=== PATIENT | male | born 1990 | race Two or more races ===

== ENCOUNTER 2017-10-18 07:13 | Emergency (ER) | payer SELFPAY ==
[~2017-10-18] VITALS: Ht 172.7 cm; Wt 79.4 kg
[2017-10-18 07:17] VITALS: BP 158/67
--- NOTE | 2017-10-18 07:41 | NUR ---
CALLED [employer], WILL SEND OFFICERS TO TAKE REPORT
== END 2017-10-18 10:04 | disposition home or self-care (01) ==
LOC: ER 07:15
DX: F19.10 Other psychoactive substance abuse, uncomplicated (principal); F15.10 Other stimulant abuse, uncomplicated; R41.82 Altered mental status, unspecified
CPT/HCPCS: 71045; 72074; 99284; A4606; Z7610

== ENCOUNTER 2018-05-21 08:57 | Emergency (ER) | payer OTHER ==
[~2018-05-21] VITALS: Ht 180.3 cm; Wt 81.6 kg
[2018-05-21 09:18] VITALS: BP 155/78
== END 2018-05-21 09:47 ==
LOC: ER 08:59
DX: B35.3 Tinea pedis (principal); F17.200 Nicotine dependence, unspecified, uncomplicated; Z59.0 Homelessness
CPT/HCPCS: 99283; A4606 ×2; Z7610 ×2

== ENCOUNTER 2018-06-13 08:57 | Emergency (ER) | payer MEDICAID, OTHER ==
[~2018-06-13] VITALS: Ht 180.3 cm; Wt 81.6 kg
[2018-06-13] MEDS ORDERED: ALPRAZOLAM 0.5 MG TABLET PO ONE (09:30)
[2018-06-13] MEDS ORDERED: ALPRAZOLAM 0.5 MG TABLET ONE (09:38)
--- NOTE | 2018-06-13 09:44 | NUR ---
PT GIVEN XANAX 1 MG PO NOW WITH RX Patient discharged to home in stable condition. Written and verbal after care instructions given. Patient verbalizes understanding of instruction.
[2018-06-13 09:47] VITALS: BP 129/87
== END 2018-06-13 09:48 | disposition home or self-care (01) ==
LOC: ER 09:01
DX: F41.9 Anxiety disorder, unspecified (principal); F17.200 Nicotine dependence, unspecified, uncomplicated; Z76.0 Encounter for issue of repeat prescription; Z59.0 Homelessness
CPT/HCPCS: 99284; A4606

== ENCOUNTER 2018-09-24 00:35 | Emergency (ER) | payer MEDICAID ==
[~2018-09-24] VITALS: Ht 180.3 cm; Wt 79.4 kg
--- NOTE | 2018-09-24 01:21 | NUR ---
CALLED PT THREE TIMES. NO RESPONSE IN WAITING ROOM.
[2018-09-24 01:25] VITALS: BP 140/93
[2018-09-24] MEDS ORDERED: ALPRAZOLAM 0.5 MG TABLET ONE (01:50)
[2018-09-24] MEDS ORDERED: ALPRAZOLAM 0.5 MG TABLET PO ONE (02:00)
== END 2018-09-24 01:57 | disposition home or self-care (01) ==
LOC: ER 00:35
DX: F41.9 Anxiety disorder, unspecified (principal); G89.29 Other chronic pain; M54.5 Low back pain; F90.9 Attention-deficit hyperactivity disorder, unspecified type; F17.200 Nicotine dependence, unspecified, uncomplicated; Z98.890 Other specified postprocedural states; Z59.0 Homelessness

== ENCOUNTER 2019-03-30 14:50 | Emergency (ER) | payer MEDICAID ==
[~2019-03-30] VITALS: Ht 172.7 cm; Wt 65.8 kg
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
[2019-03-30 15:26] LABS: BASOPHILS % (AUTO) 0.5 % (0.0-2.0); EOSINOPHILS % (AUTO) 1.7 % (0.0-6.0); HEMATOCRIT 44 % (39-51); HEMOGLOBIN 14.8 g/dL (13.5-17.5); LYMPHOCYTES # (AUTO) 2.4 /CMM (0.8-4.8); LYMPHOCYTES % (AUTO) 30.2 % (20.0-44.0); MEAN CORPUSCULAR HGB CONC 34 g/dl (31.0-36.0); MEAN CORPUSCULAR VOLUME 91 fL (80-96); MONOCYTES # (AUTO) 0.5 /CMM (0.1-1.30); NEUTROPHILS # (AUTO) 4.7 /CMM (1.8-8.9); NEUTROPHILS % (AUTO) 60.6 % (43.0-81.0); PLATELET COUNT (AUTO) 249 /CMM (150-450); RED BLOOD CELL COUNT(AUTO) 4.85 MIL/uL (4.5-6.0); WHITE BLOOD COUNT (AUTO) 7.8 K/uL (4.3-11.0)
--- NOTE | 2019-03-30 15:36 | NUR ---
PT REFUSED TO GIVEN URINE
[2019-03-30 15:58] LABS: ACETAMINOPHEN 0 ug/ml (10-30); ALANINE AMINOTRANSFERASE 25 U/L (12-78); ALKALINE PHOSPHATASE 61 U/L (46-116); ASPARTATE AMINOTRANSFERASE 18 U/L (15-37); BILIRUBIN,DIRECT 0.1 mg/dL (0.0-0.2); BILIRUBIN,TOTAL 0.5 mg/dL (0.2-1.0); CALCIUM, SERUM 9.2 mg/dL (8.5-10.1); CARBON DIOXIDE 32 mmol/L (21-32); CHLORIDE 109 mmol/L (98-107); GLUCOSE 84 mg/dL (74-106); POTASSIUM 4.3 mmol/L (3.5-5.1); SALICYLATE 0.7 mg/dL (2.8-20.0); SODIUM SERUM 147 mmol/L (136-145); TOTAL PROTEIN, SERUM 6.9 g/dL (6.4-8.2); UREA NITROGEN, BLOOD 15 mg/dL (7-18)
--- NOTE | 2019-03-30 16:00 | NUR ---
Patient is resting comfortably in bed. Easily aroused. VSS.
[2019-03-30 16:05] LABS: ALCOHOL, BLOOD < 3 mg/dL (0-0)
--- NOTE | 2019-03-30 16:58 | NUR ---
Patient is resting comfortably in bed. Easily aroused. VSS.
--- NOTE | 2019-03-30 17:10 | NUR ---
Patient discharged to home in stable condition. Written and verbal after care instructions given. Patient verbalizes understanding of instruction. PT ambulatory with a steady gait.
[2019-03-30 17:14] VITALS: BP 124/66
== END 2019-03-30 17:28 | disposition home or self-care (01) ==
LOC: ER 14:52
DX: R46.89 Other symptoms and signs involving appearance and behavior (principal); Z59.0 Homelessness
CPT/HCPCS: 36415; 80048; 80076; 80307; 80329; 85025; 99283; G0480

== ENCOUNTER 2020-10-11 14:49 | Emergency (ER) | payer SELFPAY ==
[~2020-10-11] VITALS: Ht 175.3 cm; Wt 95.3 kg
[2020-10-11 14:59] VITALS: BP 115/71
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
--- NOTE | 2020-10-11 18:45 | NUR ---
Patient does not wish to proceed with medical care recommended by Clint Painting. Patient given information related to possible complications, up to and including , which could occur as a result of leaving the hospital at this time. Patient verbalizes understanding of risks involved due to leaving against medical advice. Patient has signed AMA form.
== END 2020-10-11 18:47 | disposition left against medical advice (07) ==
LOC: ER 15:06
DX: T43.621A Poisoning by amphetamines, accidental (unintentional), initial encounter (principal); F31.9 Bipolar disorder, unspecified; F41.9 Anxiety disorder, unspecified; F29 Unspecified psychosis not due to a substance or known physiological condition; Z59.0 Homelessness; Y92.89 Other specified places as the place of occurrence of the external cause

== ENCOUNTER 2020-10-25 09:51 | Emergency (ER) | payer SELFPAY ==
[~2020-10-25] VITALS: Ht 175.3 cm; Wt 72.6 kg
[2020-10-25 09:56] VITALS: BP 123/71
[2020-10-25] MEDS ORDERED: IBUPROFEN 400 MG TABLET ONE (09:59)
[2020-10-25] MEDS ORDERED: IBUPROFEN 400 MG TABLET PO ONE (10:00)
--- NOTE | 2020-10-25 10:06 | NUR ---
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
--- NOTE | 2020-10-25 10:45 | NUR ---
[facility] AT BEDSIDE FOR CONSULT.
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
== END 2020-10-25 11:04 | disposition home or self-care (01) ==
LOC: ER 09:57
DX: S93.491A Sprain of other ligament of right ankle, initial encounter (principal); F32.9 Major depressive disorder, single episode, unspecified; F41.9 Anxiety disorder, unspecified; Z59.0 Homelessness; X50.1XXA Overexertion from prolonged static or awkward postures, initial encounter; Y93.89 Activity, other specified; Y92.89 Other specified places as the place of occurrence of the external cause; Y99.8 Other external cause status
CPT/HCPCS: 73610; 99283; A6407

== ENCOUNTER 2021-02-15 03:43 | Emergency (ER) | payer SELFPAY ==
[~2021-02-15] VITALS: Ht 185.4 cm; Wt 81.6 kg
[2021-02-15] MEDS ORDERED: CEFTRIAXONE 1 G VIAL IM ONE (04:00)
[2021-02-15] MEDS ORDERED: LIDOCAINE 1%-EPI 1:100,000 20 ML VIAL TP ONE (04:00)
[2021-02-15] MEDS ORDERED: SODIUM BICARBONATE 5 ML VIAL MC ONE (04:00)
[2021-02-15] MEDS ORDERED: TDAP [DIPH/PERTUSSIS/TET] 0.5 ML VIAL IM ONE ×2 (04:00→04:03)
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
[2021-02-15] MEDS ORDERED: SODIUM BICARBONATE 5 ML VIAL ONE (04:02)
[2021-02-15] MEDS ORDERED: LIDOCAINE 1%-EPI 1:100,000 20 ML VIAL ONE (04:02)
[2021-02-15] MEDS ORDERED: LIDOCAINE /MPF 1% VIAL 5 ML VIAL ONE (04:03)
[2021-02-15] MEDS ORDERED: CEFTRIAXONE 1 G VIAL ONE (04:03)
--- NOTE | 2021-02-15 04:24 | NUR ---
xray at bedside
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
[2021-02-15] MEDS ORDERED: HYDR-4209 PO (04:48)
[2021-02-15] MEDS ORDERED: CEPH500T PO (04:48)
--- NOTE | 2021-02-15 05:07 | NUR ---
[employer] at bedside
[2021-02-15 05:14] VITALS: BP 136/88
--- NOTE | 2021-02-15 05:14 | NUR ---
Patient discharged to home in stable condition. Written and verbal after care instructions given. Patient verbalizes understanding of instruction. RX given
== END 2021-02-15 05:14 | disposition home or self-care (01) ==
LOC: ER 03:47
DX: S61.412A Laceration without foreign body of left hand, initial encounter (principal); F32.9 Major depressive disorder, single episode, unspecified; F41.9 Anxiety disorder, unspecified; Z59.00 Homelessness unspecified; Z79.899 Other long term (current) drug therapy; X99.2XXA Assault by sword or dagger, initial encounter; Y93.89 Activity, other specified; Y92.89 Other specified places as the place of occurrence of the external cause; Y99.8 Other external cause status
CPT/HCPCS: 12002; 73130; 96372; 99283; A6403; J0696; J3490 ×3; 90715

== ENCOUNTER → 2022-05-26 | Emergency (ER) | payer SELFPAY ==
[~2022-05-26] VITALS: Ht 170.2 cm; Wt 81.6 kg
[~2022-05-26] MED LIST: CEPH500T PO; HYDR-4209 PO
[2022-05-26 07:43] VITALS: BP 131/82
--- NOTE | 2022-05-26 07:49 | NUR ---
at bedside for eval
--- NOTE | 2022-05-26 07:49 | NUR ---
wilian c/o anxiety and wanted to have covid vaccine
--- NOTE | 2022-05-26 07:59 | NUR ---
Needs of patient attended. Patient discharged to home in stable condition. Written and verbal after care instructions given. Patient verbalizes understanding of instruction.
== END | disposition home or self-care (01) ==
LOC: ER 07:26
DX: Z00.00 Encounter for general adult medical examination without abnormal findings (principal); F31.9 Bipolar disorder, unspecified; F41.9 Anxiety disorder, unspecified; Z59.00 Homelessness unspecified; Z79.899 Other long term (current) drug therapy

== ENCOUNTER 2022-09-06 19:32 | Emergency (ER) | payer SELFPAY ==
[~2022-09-06] VITALS: Ht 180.3 cm; Wt 81.6 kg
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
[2022-09-06] MEDS ORDERED: ACETAMINOPHEN ES 500 MG TABLET ONE (20:16)
--- NOTE | 2022-09-06 20:19 | NUR ---
Xray done at bedside.
[2022-09-06] MEDS ORDERED: ACETAMINOPHEN ES 500 MG TABLET PO ONE (20:30)
--- NOTE | 2022-09-06 21:43 | NUR ---
Patient discharged to home in stable condition. Written and verbal after care instructions given. Patient verbalizes understanding of instruction. pt ambulatory with a steady gait
[2022-09-06 21:53] VITALS: BP 135/71
== END 2022-09-06 21:53 | disposition home or self-care (01) ==
LOC: ER 19:40
DX: M79.605 Pain in left leg (principal); F17.200 Nicotine dependence, unspecified, uncomplicated; Z59.00 Homelessness unspecified; V23.49XA Other motorcycle driver injured in collision with car, pick-up truck or van in traffic accident, initial encounter; Y93.89 Activity, other specified; Y92.89 Other specified places as the place of occurrence of the external cause; Y99.8 Other external cause status
CPT/HCPCS: 73590-TC; 73610-TC

== ENCOUNTER 2023-04-30 04:42 | Emergency (ER) | payer MEDICAID, OTHER ==
[~2023-04-30] VITALS: Ht 180.3 cm; Wt 81.6 kg
[2023-04-30] MEDS ORDERED: HYDROCODONE/APAP 5/325MG TABLET PO ONE (06:30)
[2023-04-30] MEDS ORDERED: HYDROCODONE/APAP 5/325MG TABLET ONE (06:41)
[2023-04-30] MEDS ORDERED: TDAP [DIPH/PERTUSSIS/TET] 0.5 ML VIAL IM ONE ×2 (07:00→07:01)
[2023-04-30] MEDS ORDERED: BACI/NEOM/POLY B OINT PKT 1 UDPKT PACKET TP ONE (07:00)
[2023-04-30] MEDS ORDERED: BACI/NEOM/POLY B OINT PKT 1 UDPKT PACKET ONE (07:02)
[2023-04-30] MEDS ORDERED: IBUP-1955 PO (07:32)
[2023-04-30 09:25] VITALS: BP 119/61; TEMP 98; O2SAT 100
== END 2023-04-30 09:28 | disposition home or self-care (01) ==
LOC: ER 04:43
DX: S01.311A Laceration without foreign body of right ear, initial encounter (principal); S69.92XA Unspecified injury of left wrist, hand and finger(s), initial encounter; Z59.00 Homelessness unspecified; Y08.89XA Assault by other specified means, initial encounter; Y93.89 Activity, other specified; Y92.89 Other specified places as the place of occurrence of the external cause; Y99.8 Other external cause status
CPT/HCPCS: 70450-TC; 73130-TC; 90715